=== PATIENT | male | born 1985 | race American Indian/Alaskan Native ===

== ENCOUNTER 2020-10-27 08:07 | Emergency (ER) | payer SELFPAY ==
[2020-10-27 08:28] VITALS: BP 139/100
[2020-10-27 09:11] LABS: Hematocrit 48.8 % (35.5-45.6); Hemoglobin 16.9 gm/dl (11.8-15.2); Mean Corpuscular HGB Conc 35 % (32-34); Mean Corpuscular Volume 88 fl (84-94); Platelet Count 288 K/mm3 (140-440); Red Blood Count 5.56 M/mm3 (3.65-5.03); Red Cell Distribution Width 13.4 % (13.2-15.2)
[2020-10-27 09:14] LABS: Bacteria,Urine 1+ /HPF (Negative); Bilirubin,Urine SM (Negative); Blood,Urine MOD (Negative); Color,Urine Amber (Yellow); Hyaline Casts,Urine 207 /LPF; Mucus,Urine 3+ /HPF; Urobilinogen,Urine < 2.0 mg/dL (<2.0)
[2020-10-27 09:29] LABS: Alanine Aminotransferase 58 units/L (7-56); Albumin 4.7 g/dL (3.9-5); BUN/Creatinine Ratio 15; Blood Urea Nitrogen 18 mg/dL (9-20); Calcium 9.5 mg/dL (8.4-10.2); Hemolysis Index 21
[2020-10-27 09:45] LABS: Ictotest,Urine Negative (Negative)
[2020-10-27] MEDS ORDERED: SODIUM CHLORIDE 0.9% 1000 ML 1,000 ML IV ONE ×2 (11:18→13:12)
[2020-10-27] MEDS ORDERED: ONDANSETRON 4 MG/2 ML INJ IV ONE (11:30)
[2020-10-27] MEDS ORDERED: MORPHINE 4 MG/1 ML INJ IV ONE (11:30)
--- NOTE | 2020-10-27 11:31 | Emergency Department Report ---
ED N/V/D HPI - General Chief complaint: Nausea/Vomiting/Diarrhea Stated complaint: DEHYDRATED Time Seen by Provider: 10/27/20 11:17 Source: patient Mode of arrival: Stretcher Limitations: No Limitations - History of Present Illness Initial comments: 35-year-old male who reports no significant past medical history presents to the ER today with complaints of nausea, vomiting, diarrhea and generalized muscle aches. Patient states that his symptoms started about 4 days ago. He states that he started with the diarrhea. He describes the diarrhea as watery with no blood or mucus. He states on average he was having greater than 10 episodes per day. He states that so far this morning he has only had 1. He denies any melena, hematochezia or mucus in the stool. He states that vomiting started 2 days ago. On average he has been vomiting about 3 times per day. He states that emesis is watery and sometimes food if he tries to eat. He states that he did notice some blood in his emesis this morning. He states that this occurred 3 times a day. He states that initially was small amount of bright red blood but he states that he was concerned because the last 2 times the blood was darker red and a little bit more more in quantity. He states that the blood was mixed with food and liquid. He reports diffuse abdominal pain mainly in the upper area. He denies any fever or chills. He states that he has been urinating, urine color has been dark yellow. He denies any UTI type symptoms. Patient admits that he drinks liquor about 2-3 times per week. He states that on average he would do a shot up to almost the fifth when he drinks. He does admit that the day before his symptoms started he drank "almost" fifth of liquor. He states that he smokes marijuana and tobacco. He denies any other illicit drug use. He denies NSAID abuse. He is status post appendectomy but no other abdominal surgeries. MD complaint: nausea, vomiting, diarrhea, abdominal pain, other (Generalized muscle cramp) - Related Data Previous Rx's Medication Instructions Recorded Last Taken Type DOXYCYCLINE Hyclate [Vibramycin 100 mg PO Q12HR #14 capsule 10/27/20 Unknown Rx CAP] HYDROcodone/APAP 5-325 [Mason 1 each PO Q6HR PRN #12 tablet 10/27/20 Unknown Rx 5/325] Ondansetron [Zofran Odt] 4 mg PO Q8HR #15 tab.rapdis 10/27/20 Unknown Rx Allergies Allergy/AdvReac Type Severity Reaction Status Date / Time No Known Allergies Allergy Unverified 10/27/20 08:26 ED Review of Systems ROS: Stated complaint: DEHYDRATED Other details as noted in HPI ED Past Medical Hx - Past Medical History Previous Medical History?: No - Surgical History Hx Appendectomy: Yes - Medications Home Medications: Home Medications Medication Instructions Recorded Confirmed Last Taken Type DOXYCYCLINE Hyclate [Vibramycin 100 mg PO Q12HR #14 capsule 10/27/20 Unknown Rx CAP] HYDROcodone/APAP 5-325 [Mason 1 each PO Q6HR PRN #12 tablet 10/27/20 Unknown Rx 5/325] Ondansetron [Zofran Odt] 4 mg PO Q8HR #15 tab.rapdis 10/27/20 Unknown Rx ED Physical Exam - General Limitations: No Limitations ED Course Vital Signs 10/27/20 08:26 Temperature 97.9 F Pulse Rate 86 Respiratory 18 Rate Blood Pressure 139/100 O2 Sat by Pulse 99 Oximetry ED Medical Decision Making - Lab Data Result diagrams: 10/27/20 08:46 10/27/20 08:46 - Radiology Data Radiology results: report reviewed Patient: CASSIUS OCONNOR MR#: [id number] 15 : 1985 Acct:[id number] Age/Sex: 35 / M ADM Date: 10/27/20 Loc: ED Attending Dr: Ordering Physician: PRAVEENA PEREZ Date of Service: 10/27/20 Procedure(s): XR abd series w cxr 1V Accession Number(s): [id number] cc: PRAVEENA PEREZ Fluoro Time In Minutes: ABDOMEN 3 VIEW(S) INDICATION / CLINICAL INFORMATION: Hematemesis/abdominal pain. COMPARISON: None available. FINDINGS: TUBES / LINES: None. BOWEL GAS PATTERN: No significant stool is present in the colon. There is no evidence of bowel obstruction or mass effect. FREE AIR / EXTRALUMINAL GAS: None seen. ADDITIONAL FINDINGS: There is a surgical clip in the right lower quadrant. CHEST: The heart size and pulmonary vasculature are normal. The lungs are clear. IMPRESSION: No acute abnormality is identified. Signer Name: Iggy Allred MD Signed: 10/27/2020 12:44 PM Workstation Name: [email or web address] Transcribed By: RT Dictated By: Iggy Allred MD Electronically Authenticated By: Iggy Allred MD Signed Date/Time: 10/27/20 1244 DD/ 1243 TD/TT: - Medical Decision Making All labs reviewed -- CBC reviewed and unremarkable. CMP reviewed and shows h yponatremia with a sodium of 129, potassium was mildly decreased at 3.5, magnesium was 1.6, his LFTs were mildly elevated with AST of 116 and ALT of 58 which could be related to his alcohol intake and he had a CK of 7130. His creatinine and BUN were normal. His urinalysis is concerning for UTI versus STD. Discussed case with Dr Peña -- suspect that this likely more related to dehydration and not full-blown rhabdo since patient is not having any tea colored urine and his renal functions are normal. Patient already had 1 L of IV fluids, she recommend giving another IV fluid bolus, up to 2 and discharge as well as remained stable. 1550: Patient currently resting comfortably, playing on his phone. He is not in any acute distress. He appears to be feeling better after fluids and pain m edicines. He denies any nausea vomiting or diarrhea during stay. He is currently not toxic or ill-appearing. His repeat VS stable. He has received 2 L of IV fluids, IV mag and p.o. potassium. Discussed lab results with patient. While talking to patient about his results, he had forgot to mention that he was going to the sauna and exercising quite frequently for the past 2 weeks. He states that over the course of 2 weeks he has been exercising and at the same time going to the sauna about 8 times in the past 2 weeks. He states he would exercise for about 2-3hrs and at same time go to sauna inbetween exercises. Recommend to patient that he should not do that, especially if he is not dr inking enough water. Informed patient that he will have to increase his water intake especially over the next 2 to 3 days. Suspect also he may have had a gastroenteritis which contributed to his dehydration and also the significant amount of alcohol intake he had prior to onset of his symptoms likely contributed to his dehydration. Discussed with him the urinalysis result, he states that he has not been having any dysuria or penile discharge. Does admit to having a new sexual partner recently. Given that information patient will be treated prophylactically for gonorrhea with Rocephin and chlamydia with Doxy which will also cover for UTI pending urine culture. Patient states he recently moved here and does not currently have a PCP. Patient will be given referral to local PCP for follow up and to have his labs repeated to make sure they are improving. Patient expressed understanding of all instructions and agreed with plan. Patient instructed to return to the ER if any symptoms worsens or changes in any way. Patient was stable at time of d/c. Critical care attestation.: If time is entered above; I have spent that time in minutes in the direct care of this critically ill patient, excluding procedure time. ED Disposition Clinical Impression: Gastroenteritis, Alcohol abuse, Dehydration, Hyponatremia, Elevated CK, UTI (urinary tract infection) Disposition: TO HOME OR SELFCARE Is pt being admited?: No Does the pt Need Aspirin: No Condition: Stable Instructions: Alcohol Use Disorder, Viral Gastroenteritis, Adult, [id number], Dehydration, Adult Additional Instructions: It is important that you drink lots of water, between 6-8 bottles of the 16 ounces of water per day for the next 2 to 3 days. Is important that you try to stop drinking alcohol. It is important that you not work out or stay in the sauna as long as you have been doing. You should limit your workouts to about 30 minutes to an hour. You should do the sauna for no more than 15-20 minutes for 2-3 times per week. I recommend not working out and doing the sauna at the same time. Take the Zofran as prescribed to help with nausea. Take the pain medication as prescribed to help with pain. Take the doxycycline as prescribed until completion. Take it with food as it can sometimes cause upset stomach. I recommend that you follow-up with the primary care doctor listed on your discharge instructions in the next 2 to 3 days for repeat labs especially repeating your CK and your sodium level to make sure it is getting better. Return to the ER if your symptoms changes or worsens in any way. Prescriptions: HYDROcodone/APAP 5-325 [Mason 5/325] 1 each PO Q6HR PRN #12 tablet PRN Reason: Pain DOXYCYCLINE Hyclate [Vibramycin CAP] 100 mg PO Q12HR #14 capsule Ondansetron [Zofran Odt] 4 mg PO Q8HR #15 tab.rapdis Referrals: [facility] [Provider Group] - 7-10 days GALINA GRAVES MD [Staff Physician] - 7-10 days Forms: Work/School Release Form(ED) Time of Disposition: 15:25
[2020-10-27] MEDS ORDERED: FAMOTIDINE 20 MG TAB PO ONE (12:11)
--- NOTE | 2020-10-27 12:49 | XRay Report ---
ABDOMEN 3 VIEW(S) INDICATION / CLINICAL INFORMATION: Hematemesis/abdominal pain. COMPARISON: None available. FINDINGS: TUBES / LINES: None. BOWEL GAS PATTERN: No significant stool is present in the colon. There is no evidence of bowel obstru ction or mass effect. FREE AIR / EXTRALUMINAL GAS: None seen. ADDITIONAL FINDINGS: There is a surgical clip in the right lower quadrant. CHEST: The heart size and pulmonary vasculature are normal. The lungs are clear. IMPRESSION: No acute abnormality is identified. Signer Name: Iggy Allred MD Signed: 10/27/2020 12:44 PM Workstation Name: [id number]
[2020-10-27 12:55] LABS: Band Neutrophils # (Manual) 0.4 K/mm3; Total Cells Counted 100
[2020-10-27 12:59] LABS: Platelet Estimate Consistent w Auto; RBC Morphology Normal
[2020-10-27] MEDS ORDERED: POTASSIUM CHLORIDE ER 20 MEQ TAB PO ONE (13:11)
[2020-10-27] MEDS ORDERED: MAGNESIUM SULFATE 2 GM/50 ML BAG IV ONE (13:11)
[2020-10-27] MEDS ORDERED: LIDOCAINE-MPF (1%) 10 MG/1 ML VIAL 5 ML INFILTRATI ONE (15:49)
== END 2020-10-27 16:51 | disposition home or self-care (01) ==
LOC: ED 08:07
DX: K52.9 Noninfective gastroenteritis and colitis, unspecified (principal); E86.0 Dehydration; E87.1 Hypo-osmolality and hyponatremia; N39.0 Urinary tract infection, site not specified; R74.8 Abnormal levels of other serum enzymes
CPT/HCPCS: 36415; 74022; 80053; 81001; 82550; 83735; 85007; 85025; 87086; 96361; 96365; 96372; 96375; 99284; J0696; J2270; J2405; J3475; J7030